=== PATIENT | male | born 1965 | race Caucasian/White ===

== ENCOUNTER 2016-10-29 13:51 | Inpatient (IN) | payer OTHER ==
[~2016-10-29] VITALS: Ht 177.8 cm; Wt 150.1 kg
[~2016-10-29 13:51] MED LIST: ASPI-496 PO; CARV12.52 PO; GABA300C10 PO; INSU100I28 SC; LIRA0.6P SC; METF10002 PO; MULT-658 PO; SIMV40TA3 PO; TRAM50TA2 PO; VALS1TAB28 PO; oxycontin PO
[2016-10-29] MEDS ORDERED: SODIUM CHLORIDE FLUSH 10ML SYR IVF ONE (14:30)
[2016-10-29] MEDS ORDERED: LIRA0.6P INJ (14:53)
[2016-10-29] MEDS ORDERED: NAPR500T3 PO (14:53)
[2016-10-29] MEDS ORDERED: HYDR-3241 PO (14:56)
[2016-10-29] MEDS ORDERED: TIZA4TAB PO (14:56)
[2016-10-29] MEDS ORDERED: CLIN300C93 PO (14:56)
[2016-10-29] MEDS ORDERED: SEPTRA DS PO (14:56)
[2016-10-29 15:00] LABS: BLOOD UREA NITROGEN 30 mg/dL (7-18)
[2016-10-29] MEDS ORDERED: CEFTRIAXONE PMX 1GM/50ML 50 ML ONE (15:48)
[2016-10-29] MEDS ORDERED: CEFTRIAXONE PMX 1GM/50ML 50 ML IVPB ONE (16:00)
[2016-10-29] MEDS ORDERED: SODIUM CHLORIDE FLUSH 10ML SYR IVF PRN (16:30)
[2016-10-29] MEDS ORDERED: ONDANSETRON 2MG/ML, 2ML IVP PRN (17:30)
[2016-10-29] MEDS ORDERED: BISACODYL 10 MG SUPP PR PRN (17:30)
[2016-10-29] MEDS ORDERED: CEFTRIAXONE PMX 1GM/50ML 50 ML IV SCH (17:30)
[2016-10-29] MEDS ORDERED: ACETAMINOPHEN 325 MG TABLET PO PRN (17:30)
[2016-10-29] MEDS ORDERED: POLYETHYLENE GLYCOL 17 GM PACKET PO PRN (17:30)
[2016-10-29] MEDS ORDERED: LABETALOL 5MG/ML, 20ML IV PRN (17:30)
[2016-10-29] MEDS ORDERED: DOCUSATE 100 MG CAPSULE PO PRN (17:30)
[2016-10-29] MEDS: INSULIN REGULAR 100 UNITS/ML, 3ML VIAL SQ-INSULIN SCH ×2 (17:58→21:19)
[2016-10-29] MEDS ORDERED: HEPARIN 5,000 UNITS/ML, 1ML ONE (17:59)
[2016-10-29] MEDS: SODIUM CHLORIDE 0.9% 1,000 ML IV SCH (18:03)
[2016-10-29] MEDS: HEPARIN 5,000 UNITS/ML, 1ML SQ SCH (18:03)
[2016-10-29 21:00] VITALS: BP 134/84
[2016-10-29] MEDS: GABAPENTIN 300 MG CAPSULE PO SCH (22:03)
[2016-10-29] MEDS: SIMVASTATIN 40 MG TABLET PO SCH (22:03)
[2016-10-29] MEDS: CARVEDILOL 12.5 MG TABLET PO SCH (22:03)
[2016-10-29] MEDS: INSULIN DETEMIR 100 UNITS/ML, PEN SQ-INSULIN SCH (22:13)
[2016-10-30] MEDS: HEPARIN 5,000 UNITS/ML, 1ML SQ SCH ×3 (01:47→16:44)
[2016-10-30] MEDS: SODIUM CHLORIDE 0.9% 1,000 ML IV SCH (01:47)
[2016-10-30 01:50] VITALS: BP 103/67
[2016-10-30 06:16] LABS: ASPARTATE AMINO TRANSFERASE 19 U/L (15-37); BLOOD UREA NITROGEN 32 mg/dL (7-18)
[2016-10-30 08:32] VITALS: BP 139/83
[2016-10-30] MEDS: MULTIVITAMIN 1 TABLET PO SCH (08:48)
[2016-10-30] MEDS: ASPIRIN 81 MG TABLET EC PO SCH (08:48)
[2016-10-30] MEDS: GABAPENTIN 300 MG CAPSULE PO SCH ×2 (08:49→21:28)
[2016-10-30] MEDS: CARVEDILOL 12.5 MG TABLET PO SCH ×2 (08:49→21:28)
[2016-10-30] MEDS: INSULIN REGULAR 100 UNITS/ML, 3ML VIAL SQ-INSULIN SCH ×4 (08:50→21:06)
[2016-10-30] MEDS: TIZANIDINE 4MG TABLET PO PRN ×2 (10:25→21:28)
[2016-10-30 14:06] VITALS: BP 122/65
[2016-10-30] MEDS: CEFTRIAXONE PMX 1GM/50ML 50 ML IV SCH (16:43)
[2016-10-30 19:32] VITALS: BP 141/83
[2016-10-30] MEDS: SIMVASTATIN 40 MG TABLET PO SCH (21:28)
[2016-10-30] MEDS: INSULIN DETEMIR 100 UNITS/ML, PEN SQ-INSULIN SCH (21:29)
[2016-10-31] MEDS: HEPARIN 5,000 UNITS/ML, 1ML SQ SCH ×4 (01:30→23:24)
[2016-10-31 01:57] VITALS: BP 118/77
[2016-10-31 06:06] LABS: BLOOD UREA NITROGEN 27 mg/dL (7-18)
[2016-10-31] MEDS: INSULIN REGULAR 100 UNITS/ML, 3ML VIAL SQ-INSULIN SCH ×4 (07:00→20:12)
[2016-10-31 07:36] VITALS: BP 127/80
[2016-10-31] MEDS: TIZANIDINE 4MG TABLET PO PRN ×3 (08:29→23:24)
[2016-10-31] MEDS: CARVEDILOL 12.5 MG TABLET PO SCH ×2 (08:29→20:12)
[2016-10-31] MEDS: MULTIVITAMIN 1 TABLET PO SCH (08:30)
[2016-10-31] MEDS: GABAPENTIN 300 MG CAPSULE PO SCH ×2 (08:30→20:12)
[2016-10-31] MEDS: ASPIRIN 81 MG TABLET EC PO SCH (08:30)
[2016-10-31] MEDS: SODIUM CHLORIDE 0.9% 1,000 ML IV SCH ×2 (13:28→21:37)
[2016-10-31 14:25] VITALS: BP 138/80
[2016-10-31] MEDS: CEFTRIAXONE PMX 1GM/50ML 50 ML IV SCH (16:45)
[2016-10-31 19:55] VITALS: BP 143/79
[2016-10-31] MEDS: SIMVASTATIN 40 MG TABLET PO SCH (20:12)
[2016-10-31] MEDS: INSULIN DETEMIR 100 UNITS/ML, PEN SQ-INSULIN SCH (20:13)
[2016-11-01 01:55] VITALS: BP 124/75
[2016-11-01] MEDS: INSULIN REGULAR 100 UNITS/ML, 3ML VIAL SQ-INSULIN SCH ×4 (07:00→20:37)
[2016-11-01 07:32] VITALS: BP 130/79
[2016-11-01] MEDS: CARVEDILOL 12.5 MG TABLET PO SCH ×2 (08:01→20:37)
[2016-11-01] MEDS: GABAPENTIN 300 MG CAPSULE PO SCH ×2 (08:01→20:37)
[2016-11-01] MEDS: MULTIVITAMIN 1 TABLET PO SCH (08:01)
[2016-11-01] MEDS: ASPIRIN 81 MG TABLET EC PO SCH (08:01)
[2016-11-01] MEDS: TIZANIDINE 4MG TABLET PO PRN ×2 (08:02→17:31)
[2016-11-01] MEDS: HEPARIN 5,000 UNITS/ML, 1ML SQ SCH ×3 (08:02→22:49)
[2016-11-01 13:30] VITALS: BP 130/82
[2016-11-01] MEDS: CEFTRIAXONE PMX 1GM/50ML 50 ML IV SCH (17:01)
[2016-11-01 20:31] VITALS: BP 151/87
[2016-11-01] MEDS: SIMVASTATIN 40 MG TABLET PO SCH (20:36)
[2016-11-01] MEDS: INSULIN DETEMIR 100 UNITS/ML, PEN SQ-INSULIN SCH (20:38)
[2016-11-02] MEDS: TIZANIDINE 4MG TABLET PO PRN ×3 (01:18→20:49)
[2016-11-02 01:39] VITALS: BP 120/75
[2016-11-02] MEDS: INSULIN REGULAR 100 UNITS/ML, 3ML VIAL SQ-INSULIN SCH ×4 (07:46→20:48)
[2016-11-02 07:53] VITALS: BP 140/83
[2016-11-02 07:56] LABS: BLOOD UREA NITROGEN 22 mg/dL (7-18)
[2016-11-02] MEDS: HEPARIN 5,000 UNITS/ML, 1ML SQ SCH ×3 (08:15→23:05)
[2016-11-02] MEDS: MULTIVITAMIN 1 TABLET PO SCH (08:18)
[2016-11-02] MEDS: ASPIRIN 81 MG TABLET EC PO SCH (08:18)
[2016-11-02] MEDS: GABAPENTIN 300 MG CAPSULE PO SCH ×2 (08:18→20:49)
[2016-11-02] MEDS: CARVEDILOL 12.5 MG TABLET PO SCH ×2 (08:20→20:49)
[2016-11-02 14:15] VITALS: BP 139/80
[2016-11-02] MEDS: CEFTRIAXONE PMX 1GM/50ML 50 ML IV SCH (16:24)
[2016-11-02 19:55] VITALS: BP 149/85
[2016-11-02] MEDS: INSULIN DETEMIR 100 UNITS/ML, PEN SQ-INSULIN SCH (20:48)
[2016-11-02] MEDS: SIMVASTATIN 40 MG TABLET PO SCH (20:49)
[2016-11-03 04:32] VITALS: BP 142/81
[2016-11-03] MEDS: INSULIN REGULAR 100 UNITS/ML, 3ML VIAL SQ-INSULIN SCH ×2 (07:31→11:09)
[2016-11-03] MEDS: HEPARIN 5,000 UNITS/ML, 1ML SQ SCH (07:32)
[2016-11-03] MEDS: MULTIVITAMIN 1 TABLET PO SCH (08:16)
[2016-11-03] MEDS: TIZANIDINE 4MG TABLET PO PRN (08:16)
[2016-11-03] MEDS: GABAPENTIN 300 MG CAPSULE PO SCH (08:16)
[2016-11-03] MEDS: ASPIRIN 81 MG TABLET EC PO SCH (08:16)
[2016-11-03 08:19] VITALS: BP 153/86
[2016-11-03] MEDS: CARVEDILOL 12.5 MG TABLET PO SCH (08:19)
[2016-11-03] MEDS ORDERED: CEPH750C9 PO (13:17)
== END 2016-11-03 13:43 | disposition home or self-care (01) | DRG 264 ==
LOC: ED 15:09 → EDIP 16:15 → 3NE 20:17
PROVIDERS: ADMIT Hospitalist; ATTEND Hospitalist
PROC: 0JBR0ZZ Excision of Left Foot Subcutaneous Tissue and Fascia, Open Approach (ICD-10-PCS; principal; 2016-11-01)
DX: E10.52 Type 1 diabetes mellitus with diabetic peripheral angiopathy with gangrene (principal); N17.0 Acute kidney failure with tubular necrosis; E87.1 Hypo-osmolality and hyponatremia; M86.8X7 Other osteomyelitis, ankle and foot; Z68.42 Body mass index [BMI] 45.0-49.9, adult; E10.69 Type 1 diabetes mellitus with other specified complication; L03.032 Cellulitis of left toe; E87.5 Hyperkalemia; E10.42 Type 1 diabetes mellitus with diabetic polyneuropathy; E10.621 Type 1 diabetes mellitus with foot ulcer; E10.65 Type 1 diabetes mellitus with hyperglycemia; E78.5 Hyperlipidemia, unspecified; F12.90 Cannabis use, unspecified, uncomplicated; I10 Essential (primary) hypertension; F17.290 Nicotine dependence, other tobacco product, uncomplicated; L97.529 Non-pressure chronic ulcer of other part of left foot with unspecified severity; G89.29 Other chronic pain; M54.9 Dorsalgia, unspecified; Z79.82 Long term (current) use of aspirin; Z79.899 Other long term (current) drug therapy; Z79.4 Long term (current) use of insulin; Z90.49 Acquired absence of other specified parts of digestive tract; Z88.8 Allergy status to other drugs, medicaments and biological substances; Z80.0 Family history of malignant neoplasm of digestive organs; Z80.3 Family history of malignant neoplasm of breast
CPT/HCPCS: 36415; 80048; 80053; 82040; 82962; 83036; 83605; 83735; 84100; 84145; 84443; 84550; 85025; 87040; 93922; 93970; 96365; 96372; J0696; J1644; J1815; J7030

== ENCOUNTER → 2016-11-11 | Outpatient (CLI) | payer OTHER ==
[~2016-11-11] MED LIST changes: +CEPH750C9 PO; +CLIN300C93 PO; +HYDR-3241 PO; +LIRA0.6P INJ; +NAPR500T3 PO; +SEPTRA DS PO; +TIZA4TAB PO
== END | disposition home or self-care (01) ==
LOC: WOUND 09:14
PROVIDERS: ATTEND Podiatrist Foot & Ankle Surgery
DX: E11.621 Type 2 diabetes mellitus with foot ulcer (principal); L97.521 Non-pressure chronic ulcer of other part of left foot limited to breakdown of skin; E11.42 Type 2 diabetes mellitus with diabetic polyneuropathy; E78.5 Hyperlipidemia, unspecified; I10 Essential (primary) hypertension; F17.210 Nicotine dependence, cigarettes, uncomplicated; E11.65 Type 2 diabetes mellitus with hyperglycemia; Z68.42 Body mass index [BMI] 45.0-49.9, adult; Z72.89 Other problems related to lifestyle; Z79.4 Long term (current) use of insulin; Z79.82 Long term (current) use of aspirin
CPT/HCPCS: 11042; 99215

== ENCOUNTER → 2016-11-18 | Outpatient (CLI) | payer OTHER | END | disposition home or self-care (01) | LOC: WOUND 09:51 | PROVIDERS: ATTEND Podiatrist Foot & Ankle Surgery | DX: E11.621 Type 2 diabetes mellitus with foot ulcer (principal); L97.521 Non-pressure chronic ulcer of other part of left foot limited to breakdown of skin; I10 Essential (primary) hypertension; E11.42 Type 2 diabetes mellitus with diabetic polyneuropathy; E78.5 Hyperlipidemia, unspecified; E11.69 Type 2 diabetes mellitus with other specified complication; M86.8X7 Other osteomyelitis, ankle and foot; Z85.3 Personal history of malignant neoplasm of breast; Z68.42 Body mass index [BMI] 45.0-49.9, adult; Z79.4 Long term (current) use of insulin; F17.210 Nicotine dependence, cigarettes, uncomplicated; Z72.89 Other problems related to lifestyle | CPT/HCPCS: 97597 ==

== ENCOUNTER → 2016-11-25 | Outpatient (CLI) | payer OTHER | END | disposition home or self-care (01) | LOC: WOUND 10:25 | PROVIDERS: ATTEND Podiatrist Foot & Ankle Surgery | DX: E11.621 Type 2 diabetes mellitus with foot ulcer (principal); L97.521 Non-pressure chronic ulcer of other part of left foot limited to breakdown of skin; E11.42 Type 2 diabetes mellitus with diabetic polyneuropathy; I10 Essential (primary) hypertension; E11.65 Type 2 diabetes mellitus with hyperglycemia; E11.51 Type 2 diabetes mellitus with diabetic peripheral angiopathy without gangrene; L03.031 Cellulitis of right toe; E78.5 Hyperlipidemia, unspecified; F17.200 Nicotine dependence, unspecified, uncomplicated; M86.8X7 Other osteomyelitis, ankle and foot; Z72.89 Other problems related to lifestyle; E11.69 Type 2 diabetes mellitus with other specified complication; Z79.4 Long term (current) use of insulin; Z79.82 Long term (current) use of aspirin; Z68.42 Body mass index [BMI] 45.0-49.9, adult | CPT/HCPCS: 11042 ==

== ENCOUNTER → 2016-12-02 | Outpatient (CLI) | payer OTHER | END | disposition home or self-care (01) | LOC: WOUND 10:30 | PROVIDERS: ATTEND Podiatrist Foot & Ankle Surgery | DX: E11.621 Type 2 diabetes mellitus with foot ulcer (principal); L97.521 Non-pressure chronic ulcer of other part of left foot limited to breakdown of skin; I10 Essential (primary) hypertension; E11.42 Type 2 diabetes mellitus with diabetic polyneuropathy; E11.51 Type 2 diabetes mellitus with diabetic peripheral angiopathy without gangrene; E78.5 Hyperlipidemia, unspecified; Z68.42 Body mass index [BMI] 45.0-49.9, adult; E11.69 Type 2 diabetes mellitus with other specified complication; M86.8X7 Other osteomyelitis, ankle and foot; F17.210 Nicotine dependence, cigarettes, uncomplicated; Z72.89 Other problems related to lifestyle | CPT/HCPCS: 11042; 87070; 87077; 87186; 87205 ==

== ENCOUNTER → 2016-12-09 | Outpatient (CLI) | payer OTHER | END | disposition home or self-care (01) | LOC: WOUND 10:00 | PROVIDERS: ATTEND Podiatrist Foot & Ankle Surgery | DX: E11.621 Type 2 diabetes mellitus with foot ulcer (principal); L97.521 Non-pressure chronic ulcer of other part of left foot limited to breakdown of skin; E11.42 Type 2 diabetes mellitus with diabetic polyneuropathy; E78.5 Hyperlipidemia, unspecified; I10 Essential (primary) hypertension; E11.69 Type 2 diabetes mellitus with other specified complication; M86.8X7 Other osteomyelitis, ankle and foot; E11.52 Type 2 diabetes mellitus with diabetic peripheral angiopathy with gangrene; F17.210 Nicotine dependence, cigarettes, uncomplicated; Z72.89 Other problems related to lifestyle; Z68.42 Body mass index [BMI] 45.0-49.9, adult; Z85.3 Personal history of malignant neoplasm of breast | CPT/HCPCS: 11042 ==

== ENCOUNTER → 2016-12-16 | Outpatient (CLI) | payer OTHER | END | disposition home or self-care (01) | LOC: WOUND 10:30 | PROVIDERS: ATTEND Podiatrist Foot & Ankle Surgery | DX: E11.621 Type 2 diabetes mellitus with foot ulcer (principal); L97.521 Non-pressure chronic ulcer of other part of left foot limited to breakdown of skin; E11.42 Type 2 diabetes mellitus with diabetic polyneuropathy; E78.5 Hyperlipidemia, unspecified; E11.52 Type 2 diabetes mellitus with diabetic peripheral angiopathy with gangrene; E11.65 Type 2 diabetes mellitus with hyperglycemia; F12.90 Cannabis use, unspecified, uncomplicated; E11.69 Type 2 diabetes mellitus with other specified complication; M86.8X7 Other osteomyelitis, ankle and foot; Z85.3 Personal history of malignant neoplasm of breast; Z79.4 Long term (current) use of insulin; F17.210 Nicotine dependence, cigarettes, uncomplicated; Z72.89 Other problems related to lifestyle | CPT/HCPCS: 11042 ==

== ENCOUNTER → 2016-12-23 | Outpatient (CLI) | payer OTHER | END | disposition home or self-care (01) | LOC: WOUND 10:17 | PROVIDERS: ATTEND Podiatrist Foot & Ankle Surgery | DX: E11.621 Type 2 diabetes mellitus with foot ulcer (principal); L97.521 Non-pressure chronic ulcer of other part of left foot limited to breakdown of skin; E11.52 Type 2 diabetes mellitus with diabetic peripheral angiopathy with gangrene; E11.42 Type 2 diabetes mellitus with diabetic polyneuropathy; E11.65 Type 2 diabetes mellitus with hyperglycemia; I10 Essential (primary) hypertension; E78.5 Hyperlipidemia, unspecified; F17.210 Nicotine dependence, cigarettes, uncomplicated; E11.69 Type 2 diabetes mellitus with other specified complication; M86.8X7 Other osteomyelitis, ankle and foot; Z68.42 Body mass index [BMI] 45.0-49.9, adult; Z72.89 Other problems related to lifestyle; Z79.4 Long term (current) use of insulin | CPT/HCPCS: 87070; 87077; 87186; 87205; 97597 ==

== ENCOUNTER → 2016-12-30 | Outpatient (CLI) | payer OTHER | END | disposition home or self-care (01) | LOC: WOUND 10:18 | PROVIDERS: ATTEND Podiatrist Foot & Ankle Surgery | DX: E11.621 Type 2 diabetes mellitus with foot ulcer (principal); L97.521 Non-pressure chronic ulcer of other part of left foot limited to breakdown of skin; E11.42 Type 2 diabetes mellitus with diabetic polyneuropathy; I10 Essential (primary) hypertension; E78.5 Hyperlipidemia, unspecified; F17.200 Nicotine dependence, unspecified, uncomplicated; Z72.89 Other problems related to lifestyle | CPT/HCPCS: 11042 ==

== ENCOUNTER → 2017-01-06 | Outpatient (CLI) | payer OTHER | END | disposition home or self-care (01) | LOC: WOUND 10:42 | PROVIDERS: ATTEND Podiatrist Foot & Ankle Surgery | DX: E11.621 Type 2 diabetes mellitus with foot ulcer (principal); L97.529 Non-pressure chronic ulcer of other part of left foot with unspecified severity; E11.42 Type 2 diabetes mellitus with diabetic polyneuropathy; E78.5 Hyperlipidemia, unspecified; E11.69 Type 2 diabetes mellitus with other specified complication; M86.8X7 Other osteomyelitis, ankle and foot; E11.65 Type 2 diabetes mellitus with hyperglycemia; E11.52 Type 2 diabetes mellitus with diabetic peripheral angiopathy with gangrene; I10 Essential (primary) hypertension; F17.210 Nicotine dependence, cigarettes, uncomplicated; Z85.3 Personal history of malignant neoplasm of breast; Z72.89 Other problems related to lifestyle; Z68.42 Body mass index [BMI] 45.0-49.9, adult | CPT/HCPCS: 11042 ==

== ENCOUNTER → 2017-01-13 | Outpatient (CLI) | payer OTHER | END | disposition home or self-care (01) | LOC: WOUND 10:19 | PROVIDERS: ATTEND Podiatrist Foot & Ankle Surgery | DX: E11.621 Type 2 diabetes mellitus with foot ulcer (principal); L97.521 Non-pressure chronic ulcer of other part of left foot limited to breakdown of skin; I10 Essential (primary) hypertension; E11.42 Type 2 diabetes mellitus with diabetic polyneuropathy; E78.5 Hyperlipidemia, unspecified; E11.69 Type 2 diabetes mellitus with other specified complication; M86.8X7 Other osteomyelitis, ankle and foot; E11.52 Type 2 diabetes mellitus with diabetic peripheral angiopathy with gangrene; F17.210 Nicotine dependence, cigarettes, uncomplicated; Z85.3 Personal history of malignant neoplasm of breast; Z79.82 Long term (current) use of aspirin; Z79.4 Long term (current) use of insulin; Z68.42 Body mass index [BMI] 45.0-49.9, adult; Z72.89 Other problems related to lifestyle | CPT/HCPCS: 11042 ==

== ENCOUNTER → 2017-02-10 | Outpatient (CLI) | payer OTHER | END | disposition home or self-care (01) | LOC: WOUND 10:28 | PROVIDERS: ATTEND Podiatrist Foot & Ankle Surgery | DX: E11.621 Type 2 diabetes mellitus with foot ulcer (principal); L97.521 Non-pressure chronic ulcer of other part of left foot limited to breakdown of skin; E11.42 Type 2 diabetes mellitus with diabetic polyneuropathy; I10 Essential (primary) hypertension; E78.5 Hyperlipidemia, unspecified; E11.52 Type 2 diabetes mellitus with diabetic peripheral angiopathy with gangrene; E11.69 Type 2 diabetes mellitus with other specified complication; M86.8X7 Other osteomyelitis, ankle and foot; L84 Corns and callosities; Z85.3 Personal history of malignant neoplasm of breast; F17.210 Nicotine dependence, cigarettes, uncomplicated; Z72.89 Other problems related to lifestyle; Z79.4 Long term (current) use of insulin | CPT/HCPCS: 11055 ==

== ENCOUNTER → 2018-12-28 | Outpatient (CLI) | payer OTHER ==
[~2018-12-28] MED LIST changes: +CLIN300C8 PO; -CLIN300C93 PO; +NAPR-685 PO; -NAPR500T3 PO
== END | disposition home or self-care (01) ==
LOC: WOUND 08:00
PROVIDERS: ATTEND Podiatrist Foot & Ankle Surgery
DX: E11.621 Type 2 diabetes mellitus with foot ulcer (principal); L97.512 Non-pressure chronic ulcer of other part of right foot with fat layer exposed; L03.032 Cellulitis of left toe; I10 Essential (primary) hypertension; E11.42 Type 2 diabetes mellitus with diabetic polyneuropathy; E78.5 Hyperlipidemia, unspecified; Z87.891 Personal history of nicotine dependence
CPT/HCPCS: 11042; 99214

== ENCOUNTER → 2019-01-04 | Outpatient (CLI) | payer OTHER | END | disposition home or self-care (01) | LOC: WOUND 08:12 | PROVIDERS: ATTEND Podiatrist Foot & Ankle Surgery | DX: T81.32XD Disruption of internal operation (surgical) wound, not elsewhere classified, subsequent encounter (principal); E11.621 Type 2 diabetes mellitus with foot ulcer; L97.512 Non-pressure chronic ulcer of other part of right foot with fat layer exposed; L03.032 Cellulitis of left toe; I10 Essential (primary) hypertension; E11.42 Type 2 diabetes mellitus with diabetic polyneuropathy; E78.5 Hyperlipidemia, unspecified; Z87.891 Personal history of nicotine dependence; Y83.8 Other surgical procedures as the cause of abnormal reaction of the patient, or of later complication, without mention of misadventure at the time of the procedure | CPT/HCPCS: 11042 ==

== ENCOUNTER 2019-01-25 07:52 | Outpatient (CLI) | payer OTHER | END 2019-01-25 23:59 | disposition home or self-care (01) | LOC: WOUND 07:52 | PROVIDERS: ATTEND Internal Medicine Cardiovascular Disease | DX: T81.32XD Disruption of internal operation (surgical) wound, not elsewhere classified, subsequent encounter (principal); E11.621 Type 2 diabetes mellitus with foot ulcer; L97.512 Non-pressure chronic ulcer of other part of right foot with fat layer exposed; L03.032 Cellulitis of left toe; I10 Essential (primary) hypertension; E11.42 Type 2 diabetes mellitus with diabetic polyneuropathy; E78.5 Hyperlipidemia, unspecified; M51.36 Other intervertebral disc degeneration, lumbar region; Z87.891 Personal history of nicotine dependence; Y83.8 Other surgical procedures as the cause of abnormal reaction of the patient, or of later complication, without mention of misadventure at the time of the procedure | CPT/HCPCS: 11042 ==

== ENCOUNTER 2019-02-01 07:52 | Outpatient (CLI) | payer OTHER | END 2019-02-01 23:59 | disposition home or self-care (01) | LOC: WOUND 07:52 | PROVIDERS: ATTEND Podiatrist Foot & Ankle Surgery | DX: T81.32XD Disruption of internal operation (surgical) wound, not elsewhere classified, subsequent encounter (principal); E11.621 Type 2 diabetes mellitus with foot ulcer; L97.512 Non-pressure chronic ulcer of other part of right foot with fat layer exposed; L03.032 Cellulitis of left toe; E11.42 Type 2 diabetes mellitus with diabetic polyneuropathy; I10 Essential (primary) hypertension; E78.5 Hyperlipidemia, unspecified; M51.36 Other intervertebral disc degeneration, lumbar region; Z87.891 Personal history of nicotine dependence; Y83.8 Other surgical procedures as the cause of abnormal reaction of the patient, or of later complication, without mention of misadventure at the time of the procedure | CPT/HCPCS: 15275; Q4106 ==

== ENCOUNTER 2019-02-08 07:54 | Outpatient (CLI) | payer OTHER ==
[~2019-02-08 07:54] MED LIST changes: -TIZA4TAB PO; +TIZA4TAB2 PO
== END 2019-02-08 23:59 | disposition home or self-care (01) ==
LOC: WOUND 07:54
PROVIDERS: ATTEND Podiatrist Foot & Ankle Surgery
DX: T81.32XD Disruption of internal operation (surgical) wound, not elsewhere classified, subsequent encounter (principal); E11.621 Type 2 diabetes mellitus with foot ulcer; L97.512 Non-pressure chronic ulcer of other part of right foot with fat layer exposed; L03.032 Cellulitis of left toe; E11.42 Type 2 diabetes mellitus with diabetic polyneuropathy; L84 Corns and callosities; I10 Essential (primary) hypertension; E78.5 Hyperlipidemia, unspecified; M51.36 Other intervertebral disc degeneration, lumbar region; Z87.891 Personal history of nicotine dependence; Y83.8 Other surgical procedures as the cause of abnormal reaction of the patient, or of later complication, without mention of misadventure at the time of the procedure
CPT/HCPCS: 11042

== ENCOUNTER 2019-02-15 07:49 | Outpatient (CLI) | payer OTHER | END 2019-02-15 23:59 | disposition home or self-care (01) | LOC: WOUND 07:49 | PROVIDERS: ATTEND Podiatrist Foot & Ankle Surgery | DX: T81.32XD Disruption of internal operation (surgical) wound, not elsewhere classified, subsequent encounter (principal); E11.621 Type 2 diabetes mellitus with foot ulcer; L97.512 Non-pressure chronic ulcer of other part of right foot with fat layer exposed; L03.032 Cellulitis of left toe; E11.42 Type 2 diabetes mellitus with diabetic polyneuropathy; L84 Corns and callosities; I10 Essential (primary) hypertension; E78.5 Hyperlipidemia, unspecified; M51.36 Other intervertebral disc degeneration, lumbar region; Z87.891 Personal history of nicotine dependence; Y83.8 Other surgical procedures as the cause of abnormal reaction of the patient, or of later complication, without mention of misadventure at the time of the procedure | CPT/HCPCS: 15275; Q4106 ==